=== PATIENT | male | born 1995 | race African-American/Black ===

== ENCOUNTER 2017-12-22 14:14 | Emergency (ER) | payer MEDICAID ==
[~2017-12-22] VITALS: Ht 177.8 cm; Wt 79.4 kg
--- NOTE | 2017-12-22 16:58 | NUR ---
Patient discharged to home in stable conditon. Written and verbal after care instructions given. Patient verbalizes understanding of instructions.PT WALKS IN STEADY GAIT. PT WITH SO.
[2017-12-22 16:59] VITALS: BP 109/51
== END 2017-12-22 17:00 | disposition home or self-care (01) ==
LOC: ER 14:14
DX: J40 Bronchitis, not specified as acute or chronic (principal)
CPT/HCPCS: 87400